=== PATIENT | female | born 1965 | race American Indian/Alaskan Native ===

== ENCOUNTER → 2025-01-24 | Outpatient (CLI) | payer MEDICAID, SELFPAY ==
--- NOTE | 2025-01-24 11:30 | XR_ITS ---
Examination: Thyroid sonography TECHNIQUE: Grayscale sonographic images thyroid lobes Date and time: January 24, 2025 1131 hours INDICATIONS: Abnormal liver function tests on laboratory examination several weeks ago. FINDINGS: Right thyroid 4.8 cm Lower pole nodule 10 x 6 x 9 mm Left thyroid 4.1 cm Lower pole nodule 6 x 5 x 7 mm IMPRESSION: Thyroid nodules as above
== END | disposition home or self-care (01) ==
LOC: CDIM 11:21
PROVIDERS: PCP Physician Assistant; Referring Provider Physician Assistant; Visit Provider Physician Assistant
DX: E04.2 Nontoxic multinodular goiter (principal)
CPT/HCPCS: 76536